=== PATIENT | male | born 1990 | race African-American/Black ===

== ENCOUNTER 2018-04-15 03:20 | Emergency (ER) | END 2018-04-15 05:00 | disposition home or self-care (01) ==

== ENCOUNTER 2018-04-17 13:25 | Emergency (ER) | END 2018-04-17 15:30 | disposition home or self-care (01) ==

== ENCOUNTER 2019-03-12 16:51 | Emergency (ER) | payer MEDICAID, OTHER ==
[~2019-03-12] VITALS: Ht 188 cm; Wt 97.4 kg
[~2019-03-12 16:51] MED LIST: ACET500C5 PO; ALBU18HF INHALATION; AZIT250T PO; CETI10CA PO; CYCL10TA7 PO; HYDR-4011 PO; IBUP-1542 PO; PRED20TA PO
[2019-03-12 17:01] VITALS: Ht 188 cm; Wt 97.4 kg
--- NOTE | 2019-03-12 19:11 | ERD ---
ER Documentation Chief Complaint Chief Complaint c/o lump on penis x 1 week, denies discharge HPI 28-year-old male presented to ED for a lump on the side of his penis x1 week. Patient denies any lesions denies any discharge states this is never happened to him before. Patient states that there is really no pain is just feels awkward. Patient states that the lesion has been getting larger over the last week. 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 The patient is currently not taking any medications. Patient denies any allergies to medications. ROS All systems reviewed and are negative except as per history of present illness. Medications Home Meds Active Scripts Acetaminophen* (Tylophen*) 500 Mg Capsule, 1 CAP PO Q6H PRN for PAIN AND OR ELEV ATED TEMP, #20 CAP Prov:SANDY MCWILLIAMS PA-C 03/12/19 Cetirizine Hcl* (Zyrtec*) 10 Mg Capsule, 10 MG PO DAILY, #14 TAB.CHEW Prov:RAMEZ DEXTER PA-C 04/17/18 Prednisone* (Prednisone*) 20 Mg Tab, 40 MG PO DAILY for 5 Days, TAB Prov:RAMEZ DEXTER PA-C 04/17/18 Albuterol Sulfate* (Ventolin HFA*) 18 Gm Hfa.aer.ad, 2 PUFF INHALATION Q4H, #1 INHALER Prov:RAMEZ DEXTER PA-C 04/17/18 Azithromycin* (Zithromax*) 250 Mg Tablet, 250 MG PO .MalachiPACK DIRECTED, #6 TAB TAKE 500 MG (2 TABS) THE FIRST DAY THEN 250 MG (1 TAB) DAYS 2-5 Prov:RAMEZ DEXTER PA-C 04/17/18 Cyclobenzaprine Hcl* (Cyclobenzaprine Hcl*) 10 Mg Tablet, 10 MG PO TID, #15 TAB Prov:LEAH ALEXANDER NP 04/15/18 Hydrocodone/Acetaminophen (Sebago 5-325 Tablet) 1 Each Tablet, 1 TAB PO Q6H PRN for SEVERE PAIN LEVEL 7-10, #7 TAB Prov:LEAH ALEXANDER NP 04/15/18 Ibuprofen* (Motrin*) 600 Mg Tab, 600 MG PO Q6H PRN for PAIN AND OR ELEVATED TEMP, #30 TAB Prov:LEAH ALEXANDER SHANELL 04/15/18 Reported Medications [none] Unknown Strength No Conflict Check 04/15/18 Allergies Allergies: Coded Allergies: No Known Allergy (Unverified , 04/15/18) PMhx/Soc Medical and Surgical Hx: pt denies Medical Hx, pt denies Surgical Hx Hx Alcohol Use: No Hx Substance Use: No Hx Tobacco Use: Yes Smoking Status: Never smoker FmHx Family History: No diabetes, No coronary disease, No other Physical Exam Vitals Vital Signs Date Temp Pulse Resp B/P (MAP) Pulse Ox O2 O2 Flow FiO2 Time Delivery Rate 03/12/19 97.4 72 18 150/76 99 17:01 (100) Physical Exam GENERAL: The patient is well-appearing, well-nourished, in no acute distress CHEST: Clear to auscultation bilaterally. There are no rales, wheezes or rhonchi. HEART: Regular rate and rhythm. No murmurs, clicks, rubs or gallops. SKIN: Approximately 3 cm nontender palpable mass on the right shaft of the patient's penis. There is no ulcerations, no open sores, no penile discharge, patient is uncircumcised. Testicles lie in normal anatomical position no sign of torsion, hernia Procedures/MDM ED course: The patient was stable throughout the ED course. The patient and/or family informed of laboratory and diagnostic imaging results throughout the ED course. Diagnostic imaging: Read by radiologist .Ricardo Cannon MD PROCEDURE: Ultrasound soft tissue CLINICAL INDICATION: Lump along the right shaft of the penis. TECHNIQUE: An ultrasound of the right side of the penis was performed utilizing carlin scale and Doppler imaging. COMPARISON: None. FINDINGS: There is a sharply circumscribed, ovoid echogenic skin lesion along the right side the penis measuring 1.3 x 0.5 cm. Doppler imaging reveals no significant vascularity within this lesion. IMPRESSION: Sharply circumscribed ovoid skin lesion along the right side of the penis measuring 1.3 x 0.5 cm, nonspecific. Differential considerations for this lesion include an epidermal inclusion cyst or, less likely, a schwannoma. Medical decision makin-year-old male presented to ED for a lump on the right side of his penis. Patient states he noticed that there about a week ago. Patient denies any concerns for STIs. Patient has no open lesions, discharge, painful sores on his penis. Patient states that it the area has slowly gotten bigger over the last week. Upon palpation there is a fixed mass underlying the skin it is non-mobile it is nonpainful to palpation. An ultrasound was obtained and indicated the differential was epidermal inclusion cyst or, less likely, a schwannoma. I advised the patient of these findings and informed him that he needs to follow- up with urology to have this further investigated. The patient understands and plans to make an appointment this week. I provided the patient with a few references for urology. The patient is in agreement to the treatment plan. The patient remained stable the entire visit in the ED and all questions were answered upon discharge. I advised the patient that he has any concerns or worsening symptoms that he can return to ED immediately otherwise continue follow-up care with urology. Patient is agreement treatment plan all questions were answered upon discharge. Prescription for home: Acetaminophen I have discussed with the patient proper use and common side effects to expert with the medication . I advised the patient/family to speak with the pharmacist dispensing the medication to be advised of any potential drug interactions with other medication or supplements they may be taking. Discharge: At this time, patient is stable for discharge and outpatient management. I have instructed the patient to follow-up with his\her primary care physician in 1 to 2 days. I have discussed with the patient the possibility of needing to see a specialist for further work-up and imaging studies if symptoms persist. I have instructed the patient to promptly return to the ER for any new or worsening symptoms including increased pain, fever, nausea, vomiting, weakness or LOC. The patient and\or family expressed understanding of and agreement with this plan. All questions were answered. Home care instructions were provided. Disclaimer: Inadvertent spelling and grammatical errors are likely due to EHR\dictation software use and do not reflect on the overall quality of patient care. Also, please note that the electronic time recorded on the note does not necessarily reflect the actual time of the patient encounter. Departure Diagnosis: Primary Impression: Disorder of male genital organs Additional Impression: Penile mass Condition: Stable Patient Instructions: Understanding Human Papillomavirus (HPV) and Genital Warts Referrals: BRYANT SCHWARTZ MD,ENZO ESPINOZA MD [facility] YOU HAVE RECEIVED A MEDICAL SCREENING EXAM AND THE RESULTS INDICATE THAT YOU DO NOT HAVE A CONDITION THAT REQUIRES URGENT TREATMENT IN THE EMERGENCY DEPARTMENT. FURTHER EVALUATION AND TREATMENT OF YOUR CONDITION CAN WAIT UNTIL YOU ARE SEEN IN YOUR DOCTORS OFFICE WITHIN THE NEXT 1-2 DAYS. IT IS YOUR RESPONSIBILITY TO MAKE AN APPOINTMENT FOR FOLOW-UP CARE. IF YOU HAVE A PRIMARY DOCTOR --you should call your primary doctor and schedule an appointment IF YOU DO NOT HAVE A PRIMARY DOCTOR YOU CAN CALL OUR PHYSICIAN REFERRAL HOTLINE AT IF YOU CAN NOT AFFORD TO SEE A PHYSICIAN YOU CAN CHOSE FROM THE FOLLOWING [facility] [address] [facility]. [facility] [address] [facility]. [facility] [address] [facility] [facility] [address] [facility] [facility] [address] [facility]. [facility] [address] [facility] [facility] YOU HAVE RECEIVED A MEDICAL SCREENING EXAM AND THE RESULTS INDICATE THAT YOU DO NOT HAVE A CONDITION THAT REQUIRES URGENT TREATMENT IN THE EMERGENCY DEPARTMENT. FURTHER EVALUATION AND TREATMENT OF YOUR CONDITION CAN WAIT UNTIL YOU ARE SEEN IN YOUR DOCTORS OFFICE WITHIN THE NEXT 1-2 DAYS. IT IS YOUR RESPONSIBILITY TO MAKE AN APPOINTMENT FOR FOLOW-UP CARE. IF YOU HAVE A PRIMARY DOCTOR --you should call your primary doctor and schedule and appointment IF YOU DO NOT HAVE A PRIMARY DOCTOR YOU CAN CALL OUR PHYSICIAN REFERRAL HOTLINE AT . IF YOU CAN NOT AFFORD TO SEE A PHYSICIAN YOU CAN CHOSE FROM THE FOLLOWING [facility]: [facility] [address] [place] [address] [facility] [address] [place] [address] [facility] + [facility] [address] [place] [address] Additional Instructions: SPECIALIST: YOU HAVE A MEDICAL CONDITION WHICH REQUIRES YOU TO SEE A SPECIALIST WITHIN THE NEXT 1-2 DAYS. PLEASE FOLLOW UP WITH YOUR PRIMARY PHYSICIAN FOR REFFERAL.IF YOU DO NOT HAVE A PRIMARY CARE PHYSICIAN AND/OR YOU CAN NOT AFFORD TO SEE A PHYSICIAN THE FOLLOWING RESOURCES HAVE BEEN SUPPLIED TO YOU. IT IS YOUR RESPONSIBILITY TO BE SEEN BY THE SPECIALIST SANDY MCWILLIAMS PA-C Mar 12, 2019 19:11
[2019-03-12 19:51] VITALS: BP 138/76; PULSE 72; RESP 17
== END 2019-03-12 19:51 | disposition home or self-care (01) ==
LOC: FTE 16:51
DX: N50.89 Other specified disorders of the male genital organs (principal); Z87.891 Personal history of nicotine dependence
CPT/HCPCS: 76536